=== PATIENT | female | born 1995 | race Caucasian/White ===

== ENCOUNTER 2019-10-20 10:47 | Emergency (ER) | payer OTHER ==
[~2019-10-20] VITALS: Ht 149.9 cm; Wt 56.8 kg
[2019-10-20 11:24] VITALS: BP 106/60
--- NOTE | 2019-10-20 11:35 | REP ---
INDICATION: Trauma PROCEDURE: CT head without contrast COMPARISON STUDIES: No prior similar studies FINDINGS: No acute bleed or acute large vessel territorial infarct. No fracture. Ventricles, cisterns and sulci within normal limits. No mass effect or midline shift. No abnormal fluid collections. Paranasal sinuses and mastoid air cells are clear. IMPRESSION: No acute findings /no traumatic findings. Normal examination. Electronically Signed by uDsty North MD 10/20/2019 11:26 A
--- NOTE | 2019-10-20 11:38 | REP ---
INDICATION: Trauma PROCEDURE: CT cervical spine. COMPARISON STUDIES: No prior similar studies FINDINGS: No acute fracture or malalignment. Cranial vertebral junction is unremarkable. Cervical canal and neural foramen appear widely patent. Lung apices are clear. IMPRESSION: No acute findings. Normal examination. Electronically Signed by Dusty North MD 10/20/2019 11:28 A
--- NOTE | 2019-10-20 11:42 | REP ---
INDICATION: Trauma PROCEDURE: CT maxillofacial COMPARISON STUDIES: No prior similar studies FINDINGS: No definite facial bones fractures. The nasal bones and nasal spine appear intact. The paranasal sinuses are clear. Dentition appears unremarkable. TMJs well seated bilaterally. Mastoid air cells are clear. CONCLUSION: No acute findings. No facial bone fracture identified. Electronically Signed by Dusty North MD 10/20/2019 11:34 A
== END 2019-10-20 12:05 | disposition home or self-care (01) ==
LOC: EDBD 10:47 → M ED 10:47
DX: S06.0X9A Concussion with loss of consciousness of unspecified duration, initial encounter (principal); M54.2 Cervicalgia; V47.5XXA Car driver injured in collision with fixed or stationary object in traffic accident, initial encounter; Y92.9 Unspecified place or not applicable; Y93.89 Activity, other specified; Y99.9 Unspecified external cause status; F41.9 Anxiety disorder, unspecified; F32.9 Major depressive disorder, single episode, unspecified

== ENCOUNTER 2020-08-01 18:43 | Emergency (ER) | payer OTHER ==
[~2020-08-01] VITALS: Ht 149.9 cm; Wt 54.1 kg
[2020-08-01] MEDS ORDERED: tylenol 1 gm (19:04)
[2020-08-01 20:03] LABS: BASO # 0.1 10^3/uL (0.0-0.2); BASO % 0.4 % (0.0-1.0); EOS # 0.2 10^3/uL (0.0-0.5); EOS % 1.7 % (0.0-3.0); HEMATOCRIT 36.8 % (36.0-47.0); LYMPH # 2.4 10^3/uL (1.5-5.0); LYMPH % 18.8 % (24.0-44.0); MEAN CORPUSCULAR HEMOGLOBIN 28.4 pg (27.0-33.0); MEAN CORPUSCULAR HGB CONC 32.6 g/dl (32.0-36.5); MONO # 1.1 10^3/uL (0.0-0.8); MONO % 8.1 % (0.0-5.0); NEUTROPHILS # 9.2 10^3/uL (1.5-8.5); NEUTROPHILS % 70.6 % (36.0-66.0); PLATELET COUNT, AUTOMATED 287 10^3/uL (150-450); RED BLOOD COUNT 4.23 10^6/uL (4.00-5.40)
[2020-08-01] MEDS ORDERED: IRON15CH PO (20:05)
[2020-08-01] MEDS ORDERED: TIZA2TAB6 PO (20:05)
[2020-08-01] MEDS ORDERED: TRAZ-252 PO (20:05)
[2020-08-01] MEDS ORDERED: B-12100021 PO (20:05)
[2020-08-01 20:27] LABS: BLOOD UREA NITROGEN 12 MG/DL (7-18); CARBON DIOXIDE LEVEL 26 MEQ/L (21-32); CHLORIDE LEVEL 106 MEQ/L (98-107); CREATININE FOR GFR 0.93 MG/DL (0.55-1.30); GLOMERULAR FILTRATION RATE > 60.0 (>60); GLUCOSE, FASTING 89 MG/DL (70-100); HCG, SERUM QUANTITATIVE < 1.0 MIU/ML; POTASSIUM SERUM 4.2 MEQ/L (3.5-5.1); SODIUM LEVEL 139 MEQ/L (136-145)
[2020-08-01] MEDS ORDERED: MORPHINE 4 MG/ML 1ML VIAL/SYRINGE (J2270) IV ONE ×2 (20:30→21:45)
[2020-08-01] MEDS ORDERED: ONDANSETRON 4MG/2ML VIAL IV ONE (20:30)
--- NOTE | 2020-08-01 21:08 | REPVR ---
PROCEDURE INFORMATION: Exam: US Pelvis Complete, Transabdominal and US Pelvis, Transvaginal Exam date and time: 08/01/2020 8:30 PM Age: 25 years old Clinical indication: Pelvic pain; Additional info: Vaginal bleeding and pelvic pain TECHNIQUE: Imaging protocol: Real-time transabdominal and transvaginal pelvic ultrasound (complete) with image documentation. Transvaginal imaging was used for better evaluation of the endometrium, adnexa, and/or cervix. COMPARISON: No relevant prior studies available. FINDINGS: Uterus/cervix: The uterus is retroverted and measures 6.1 x 3.3 x 4.3 cm. There is a small amount of fluid in the endocervical canal. The endometrium is not thickened measuring 4.2 mm in width. Right adnexa: Right ovary contains follicles and is normal appearance measuring 1.8 x 1.6 x 2 cm. Blood flow is detected. Left adnexa: Left ovary is normal appearance measuring 1.4 x 0.9 x 1.2 cm. Blood flow is detected. Intraperitoneal space: Free fluid in the cul-de-sac. Urinary bladder: Unremarkable. IMPRESSION: There is a moderate volume of free fluid in the cul-de-sac. There is a minimal volume of fluid in the endocervical canal. Electronically signed by: Collette Braga On 08/01/2020 21:08:49 PM
[2020-08-01] MEDS ORDERED: FLUCONAZOLE 50MG TABLET PO ONE (22:45)
[2020-08-01 23:15] VITALS: BP 114/68
[2020-08-02 00:25] LABS: CHLAMYDIA DNA AMPLIFICATION NEGATIVE (NEGATIVE); GC DNA AMPLIFICATION NEGATIVE (NEGATIVE)
== END 2020-08-01 23:41 | disposition home or self-care (01) ==
LOC: M ED 18:43
DX: B37.3 Candidiasis of vulva and vagina (principal); F41.9 Anxiety disorder, unspecified; F32.9 Major depressive disorder, single episode, unspecified; F17.290 Nicotine dependence, other tobacco product, uncomplicated; Z79.3 Long term (current) use of hormonal contraceptives; Z79.899 Other long term (current) drug therapy; Z91.040 Latex allergy status
CPT/HCPCS: 36415; 76830; 76856; 80048; 81001; 84702; 85025; 86850; 86900; 86901; 87210; 87491; 87591; 93976; 96374; 96375; 96376; 99284; J2270; J2405

== ENCOUNTER → 2021-01-13 | Outpatient (CLI) | payer OTHER ==
[~2021-01-13] MED LIST: B-12100021 PO; E-Z-GAS II EFFERVESCENT PACKET (SODIUM BICARB./CITRIC ACID/SIMETHICONE) As Ordered ONE; E-Z-HD 98% w/w 340GM SUSP BTL As Ordered ONE; E-Z-PAQUE 96% w/w SUSP 176GM BTL As Ordered ONE; IRON15CH PO; TIZA1TAB12 PO; TRAZ-252 PO; tylenol 1 gm
--- NOTE | 2021-01-13 19:10 | REP ---
INDICATION: DYSPHAGIA, UNSPECIFIED. COMPARISON: None TECHNIQUE: This procedure was performed by Dinora Gaona [facility], under the direct supervision of Dr. Johnson. Images were reviewed with Dr. Johnson prior to dictation. Liquid barium and gas producing crystals were given in the erect position, as well as liquid barium in the prone oblique position in order to perform a double contrast esophagram examination. FINDINGS: A single view PA chest x-ray is submitted as a ambulatory care film. The superior mediastinal structures are midline. The heart size is within normal limits. The lungs are clear. The oral and pharyngeal stages of deglutition were unremarkable. Esophageal transport is prompt and efficient. There are some mucosal irregularities at the GE junction. These are consistent with tiny ulcerations indicating esophagitis. There is evidence of a small hiatal hernia. A small amount of reflux was visualized into the distal esophagus.. IMPRESSION: 1. Mucosal irregularities of the GE junction consistent with esophagitis. 2. Small hiatal hernia. 3. Small amount of reflux into the distal esophagus. 0.2 minutes of fluoroscopy time was utilized for this procedure. Some fluoroscopic images are performed with last image hold technology. These images require no additional radiation. <Electronically signed by Dinora Gaona > 01/13/21 1625 <Electronically signed by Héctor Johnson > 01/13/21 1901
== END ==
LOC: M RAD 08:46
PROVIDERS: ATTEND Physician Assistant
DX: R13.10 Dysphagia, unspecified (principal); K44.9 Diaphragmatic hernia without obstruction or gangrene; K21.9 Gastro-esophageal reflux disease without esophagitis

== ENCOUNTER 2021-03-11 12:10 | Day surgery (SDC) | payer OTHER ==
[~2021-03-11] VITALS: Ht 144.8 cm; Wt 54.9 kg
[~2021-03-11 12:10] MED LIST changes: +DULO30CA9 PO; -E-Z-GAS II EFFERVESCENT PACKET (SODIUM BICARB./CITRIC ACID/SIMETHICONE) As Ordered ONE; -E-Z-HD 98% w/w 340GM SUSP BTL As Ordered ONE; -E-Z-PAQUE 96% w/w SUSP 176GM BTL As Ordered ONE; +NORE0.353 PO; +NS 1,000 ML IV ONE; +PANT40TA29 PO
[2021-03-11] MEDS ORDERED: LIDOCAINE 2% 100MG/5ML SDV (FOR ANES.) As Ordered ONE (13:13)
[2021-03-11] MEDS ORDERED: fentaNYL 100 MCG/2 ML INJECTION (J3010) As Ordered ONE (13:13)
[2021-03-11] MEDS ORDERED: propofoL 200 MG/20 ML VIAL As Ordered ONE (13:13)
--- NOTE | 2021-03-11 13:44 | ROOR ---
Patient Name: Leila Cespedes Procedure Date: 03/11/2021 1:15 PM Date of : 1995 Age: 25 Room: [facility] Gender: Female Note Status: Finalized Procedure: Upper GI endoscopy Indications: Esophageal dysphagia, Heartburn Providers: Terrell Bledsoe MD Referring MD: DEVIN BELTRAN MD Requesting Provider: Medicines: Monitored Anesthesia Care Complications: No immediate complications. Procedure: Pre-Anesthesia Assessment: - The heart rate, respiratory rate, oxygen saturations, blood pressure, adequacy of pulmonary ventilation, and response to care were monitored throughout the procedure. The Endoscope was introduced through the mouth, and advanced to the second part of duodenum. The upper GI endoscopy was accomplished without difficulty. The patient tolerated the procedure well. Findings: One benign-appearing, intrinsic moderate (circumferential scarring or stenosis; an endoscope may pass) stenosis was found 36 cm from the incisors. This stenosis measured 1 cm (in length). The stenosis was traversed. The dilation site was examined and showed moderate mucosal disruption and moderate improvement in luminal narrowing. Biopsies were taken with a cold forceps for histology. Three biopsies were obtained with cold forceps for evaluation of eosinophilic esophagitis in the upper third of the esophagus and in the middle third of the esophagus. Small Hiatal Hernia. The entire examined stomach was normal. The examined duodenum was normal. 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 Dilated to 19 mm with CRE balloon system, and Biopsied. - Small Hiatal Hernia. - Otherwise normal stomach. - Normal examined duodenum. - Three biopsies were obtained in the upper third of the esophagus and in the middle third of the esophagus. Recommendation: - Continue present medications. - Await pathology results. - Soft diet. - Follow an antireflux regimen. Procedure Code(s): --- Professional --- 17375, Esophagogastroduodenoscopy, flexible, transoral; with transendoscopic balloon dilation of esophagus (less than 30 mm diameter) 31027, 59, Esophagogastroduodenoscopy, flexible, transoral; with biopsy, single or multiple Diagnosis Code(s): --- Professional --- R12, Heartburn R13.14, Dysphagia, pharyngoesophageal phase K22.2, Esophageal obstruction CPT copyright 2019 [employer]. All rights reserved. The codes documented in this report are preliminary and upon county agent review may be revised to meet current compliance requirements. Terrell Bledsoe MD Terrell Bledsoe MD 03/11/2021 1:44:03 PM Electronically signed by Terrell Bledsoe MD Number of Addenda: 0 Note Initiated On: 03/11/2021 1:15 PM Estimated Blood Loss: Estimated blood loss: none.
[2021-03-11] MEDS ORDERED: IBUPROFEN 400MG TAB PO ONE (14:20)
[2021-03-11 14:38] VITALS: BP 120/75
== END 2021-03-11 14:35 | disposition home or self-care (01) ==
LOC: M OPP 12:10
PROVIDERS: ATTEND Internal Medicine Gastroenterology
DX: K22.2 Esophageal obstruction (principal); K44.9 Diaphragmatic hernia without obstruction or gangrene; R13.14 Dysphagia, pharyngoesophageal phase; Z79.3 Long term (current) use of hormonal contraceptives; Z79.899 Other long term (current) drug therapy; Z91.040 Latex allergy status; Z87.891 Personal history of nicotine dependence
CPT/HCPCS: 43239; 43249; 88305; J3010

== ENCOUNTER 2022-02-24 13:42 | Emergency (ER) | payer OTHER ==
[~2022-02-24] VITALS: Ht 149.9 cm; Wt 58.2 kg
[~2022-02-24 13:42] MED LIST changes: -NS 1,000 ML IV ONE
[2022-02-24 13:43] VITALS: BP 143/95
[2022-02-24 15:02] LABS: BASO # 0.1 10^3/uL (0.0-0.2); BASO % 0.6 % (0.0-1.0); EOS # 0.2 10^3/uL (0.0-0.5); HEMATOCRIT 41.6 % (36.0-47.0); HEMOGLOBIN 13.5 g/dl (12.0-15.5); LYMPH # 2.7 10^3/uL (1.5-5.0); LYMPH % 26.3 % (24.0-44.0); MEAN CORPUSCULAR HEMOGLOBIN 27.5 pg (27.0-33.0); MEAN CORPUSCULAR HGB CONC 32.5 g/dl (32.0-36.5); MEAN CORPUSCULAR VOLUME 84.7 fl (80.0-96.0); MONO # 0.9 10^3/uL (0.0-0.8); MONO % 8.8 % (2.0-8.0); NEUTROPHILS # 6.4 10^3/uL (1.5-8.5); NEUTROPHILS % 61.7 % (36.0-66.0); PLATELET COUNT, AUTOMATED 320 10^3/uL (150-450); RED BLOOD COUNT 4.91 10^6/uL (4.00-5.40); WHITE BLOOD COUNT 10.4 10^3/uL (4.0-10.0)
[2022-02-24 15:26] LABS: ALBUMIN 3.8 GM/DL (3.2-5.2); ALT/SGPT 14 U/L (12-78); BILIRUBIN,DIRECT 0.1 MG/DL (0.0-0.2); BILIRUBIN,TOTAL 0.3 MG/DL (0.2-1.0); BLOOD UREA NITROGEN 15 MG/DL (7-18); CALCIUM LEVEL 9.4 MG/DL (8.5-10.1); CARBON DIOXIDE LEVEL 26 MEQ/L (21-32); CHLORIDE LEVEL 107 MEQ/L (98-107); GLOMERULAR FILTRATION RATE > 60.0 (>60); GLUCOSE, FASTING 95 MG/DL (70-100); LIPASE 124 U/L (73-393); POTASSIUM SERUM 4.1 MEQ/L (3.5-5.1); SODIUM LEVEL 138 MEQ/L (136-145)
[2022-02-24 15:30] LABS: HCG, SERUM QUALITATIVE NEGATIVE (NEGATIVE)
== END 2022-02-24 18:00 | disposition left against medical advice (07) ==
LOC: M ED 13:42
DX: Z53.21 Procedure and treatment not carried out due to patient leaving prior to being seen by health care provider (principal)